=== PATIENT | male | born 1955 | race African-American/Black ===

== ENCOUNTER 2023-06-25 07:48 | Emergency (ER) | payer SELFPAY ==
[~2023-06-25] VITALS: Ht 172.7 cm; Wt 98.1 kg
[2023-06-25 07:52] VITALS: O2SAT 100
[2023-06-25] MEDS ORDERED: LEVO-65 MT (09:50)
[2023-06-25] MEDS ORDERED: IBUP-2030 MT (09:50)
[2023-06-25] MEDS ORDERED: CEFTRIAXONE SODIUM 500 MG/VIAL IM ONE (10:00)
[2023-06-25] MEDS ORDERED: IBUPROFEN 800MG TABLET PO ONE (10:00)
[2023-06-25 10:21] LABS: CLARITY URINE CLEAR (CLEAR); COLOR URINE YELLOW (YELLOW); GLUCOSE URINE NEGATIVE (NEGATIVE); KETONES URINE NEGATIVE (NEGATIVE); PROTEIN URINE TRACE (NEGATIVE); SPECIFIC GRAVITY URINE 1.025 (1.005-1.030)
[2023-06-25 10:22] LABS: LEUKOCYTE ESTERASE URINE TRACE (NEGATIVE); NITRITE URINE NEGATIVE (NEGATIVE); OCCULT BLOOD URINE NEGATIVE (NEGATIVE); UROBILINOGEN URINE 0.2 E.U./dL (0.2-1.0)
[2023-06-25] MEDS ORDERED: IBUPROFEN 400MG TABLET PO SCH (10:30)
[2023-06-25 10:46] VITALS: BP 138/64; PULSE 97; RESP 16
[2023-06-25 11:03] LABS: RBC URINE 0-2 /hpf (0-2); SQUAMOUS EPITHELIAL CELL URINE RARE /lpf (RARE/1+); WBC URINE 0-2 /hpf (0-2); YEAST URINE NONE SEEN
[2023-06-25 11:04] LABS: BACTERIA URINE 3+
[2023-06-27 08:07] LABS: CHLAMYDIA TRACHOMATIS NAA Negative (Negative); NEISSERIA GONORRHOEAE NAA Negative (Negative)
== END 2023-06-25 10:47 | disposition home or self-care (01) ==
LOC: ER 07:48
DX: N45.3 Epididymo-orchitis (principal)
CPT/HCPCS: 87491; 87591; 81003; 93976; 76870; 96372; 99285; J0696; Z7610

== ENCOUNTER 2023-09-11 08:55 | Emergency (ER) | payer MEDICARE ==
[~2023-09-11] VITALS: Ht 175.3 cm; Wt 90.0 kg
[~2023-09-11 08:55] MED LIST: IBUP-2030 MT; LEVO-65 MT
[2023-09-11 09:02] VITALS: BP 163/70; PULSE 93; RESP 20; TEMP 98.4; O2SAT 100
[2023-09-11] MEDS: FLUORESCEIN SODIUM 1MG/STRIP RIGHTEYE ONE (09:41)
[2023-09-11] MEDS: IBUPROFEN 600MG TABLET PO ONE (09:41)
[2023-09-11] MEDS: TRAMADOL 50MG TABLET PO ONE (09:41)
[2023-09-11] MEDS: TETRACAINE 0.5% OPHTH DROPS 4ML RIGHTEYE ONE (09:42)
[2023-09-11] MEDS: ATROPINE SULFATE 1% OPHTH 2ML RIGHTEYE ONE (09:49)
[2023-09-11] MEDS: PILOCARPINE HCL 4% OPHTH DROPS 15ML BOTHEYE NR (11:00)
[2023-09-11] MEDS: ACETAZOLAMIDE SODIUM 500MG/VIAL IV NR (11:39)
[2023-09-11] MEDS: TIMOLOL MALEATE 0.5% OPHTH DROPS 5ML EACHEYE NR (11:40)
[2023-09-11] MEDS: PREDNISOLONE ACETATE 1% OPHTH DROPS 5ML EACHEYE NR (11:40)
[2023-09-11] MEDS ORDERED: PILO15DR36 EACHEYE (14:38)
[2023-09-11] MEDS ORDERED: TIMO5DRO16 EACHEYE (14:43)
[2023-09-11] MEDS ORDERED: ACET250T3 MT (14:45)
[2023-09-11] MEDS ORDERED: IBUP-2030 MT (14:46)
== END 2023-09-11 10:50 | disposition home or self-care (01) ==
LOC: ER 08:55
DX: H40.9 Unspecified glaucoma (principal); H44.001 Unspecified purulent endophthalmitis, right eye
CPT/HCPCS: 99284; 96374; J1120

== ENCOUNTER 2023-12-21 07:12 | Emergency (ER) | payer MEDICARE ==
[~2023-12-21] VITALS: Ht 172.7 cm; Wt 91.0 kg
[~2023-12-21 07:12] MED LIST changes: +ACET250T3 MT; +PILO15DR36 EACHEYE; +TIMO5DRO16 EACHEYE
[2023-12-21 07:15] VITALS: TEMP 98.6; O2SAT 100
[2023-12-21] MEDS: TETRACAINE 0.5% OPHTH DROPS 4ML BOTHEYE ONE (09:00)
[2023-12-21] MEDS: TIMOLOL MALEATE 0.5% OPHTH DROPS 5ML EACHEYE ONE (12:00)
[2023-12-21] MEDS: PILOCARPINE HCL 4% OPHTH DROPS 15ML BOTHEYE SCH (12:00)
[2023-12-21] MEDS: ACETAZOLAMIDE SODIUM 500MG/VIAL IV ONE (12:00)
[2023-12-21] MEDS ORDERED: TIMO15DR12 EACHEYE (14:37)
[2023-12-21] MEDS ORDERED: [UNRECOGNIZED DRUG - CODE] EACHEYE (14:37)
[2023-12-21 14:45] VITALS: BP 138/70; PULSE 70; RESP 15
== END 2023-12-21 14:53 | disposition home or self-care (01) ==
LOC: ER 07:12
DX: H40.89 Other specified glaucoma (principal); H54.62 Unqualified visual loss, left eye, normal vision right eye
CPT/HCPCS: 99291; 96374; J1120